=== PATIENT | female | born 1960 ===

== ENCOUNTER 2021-08-27 18:05 | Emergency (ER) | payer OTHER, SELFPAY ==
[2021-08-27] MEDS ORDERED: Ketorolac Tromethamine 30 MG/ML VIAL ONE (19:13)
== END 2021-08-27 19:54 | disposition home or self-care (01) ==
LOC: ERS 18:05
DX: S93.401A Sprain of unspecified ligament of right ankle, initial encounter (principal); S33.5XXA Sprain of ligaments of lumbar spine, initial encounter; W01.0XXA Fall on same level from slipping, tripping and stumbling without subsequent striking against object, initial encounter
CPT/HCPCS: 96372; J1885

== ENCOUNTER 2021-09-18 09:32 | Emergency (ER) | payer OTHER, SELFPAY | END 2021-09-18 10:45 | disposition home or self-care (01) | LOC: ERS 09:32 | DX: B02.9 Zoster without complications (principal); Z79.899 Other long term (current) drug therapy | CPT/HCPCS: 99282 ==